=== PATIENT | male | born 1945 | race African-American/Black ===

== ENCOUNTER 2023-07-08 16:26 | Emergency (ER) | payer OTHER, MEDICAID ==
[~2023-07-08] VITALS: Ht 188 cm; Wt 75.0 kg
[2023-07-08 16:32] VITALS: O2SAT 98
[2023-07-08] MEDS: HYDROCODONE/ACETAMINOPHEN 5/325MG TABLET PO ONE (17:39)
[2023-07-08] MEDS: KETOROLAC 60MG/2ML VIAL IM ONE (20:22)
[2023-07-08] MEDS ORDERED: MORPHINE SULFATE 4 MG/ML CPJ (NOT FOR IM USE) IV ONE (21:30)
[2023-07-08] MEDS ORDERED: HYDR-4001 MT (21:43)
[2023-07-08 22:10] VITALS: BP 132/84; PULSE 62; RESP 12; TEMP 98.6
== END 2023-07-08 22:20 | disposition home or self-care (01) ==
LOC: ER 16:26
DX: M54.50 Low back pain, unspecified (principal); R51.9 Headache, unspecified; Z98.890 Other specified postprocedural states; W18.30XA Fall on same level, unspecified, initial encounter; Y93.89 Activity, other specified; Y92.89 Other specified places as the place of occurrence of the external cause; Y99.8 Other external cause status
CPT/HCPCS: 99285; 70450; 72131; 96372; J1885